=== PATIENT | female | born 1950 | race Caucasian/White ===

== ENCOUNTER 2024-12-18 16:40 | Inpatient (IN) | payer MEDICARE ==
[~2024-12-18 16:40] MED LIST: Iopamidol 370 76% 100 ML VIAL ONE
[2024-12-18 17:48] LABS: ALT (SGPT) 21 U/L (Less than 34); AST (SGOT) 28 U/L (11-34); Albumin 3.6 g/dL (3.1-4.5); Alkaline Phosphatase 122 U/L (40-110); Anion Gap 18 mmol/L (10-20); BUN (Urea Nitrogen) 29 mg/dL (9.8-20.1); Bilirubin, Total 1.2 mg/dL (0.3-1.2); Calc. Creatinine Clearance 0 mL/min (70-130); Calcium 8.9 mg/dL (7.8-10.44); Carbon Dioxide 23 mmol/L (23-31); Chloride 99 mmol/L (98-107); Globulin 3.8 g/dL (2.4-3.5); Glucose 194 mg/dL (83-110); Potassium 4.5 mmol/L (3.5-5.1); Sodium 135 mmol/L (136-145)
[2024-12-18] MEDS ORDERED: cefTRIAXone (ROCEPHIN) 2 GM VIAL ONE (17:53)
[2024-12-18 17:54] LABS: #Basophils Less than 0.03 10x3/uL (0.0-0.2); #Eosinophils 0.03 10x3/uL (0.0-0.5); #Monocytes 0.71 10x3/uL (0.0-1.1); #Neutrophils 10.12 10x3/uL (1.5-8.4); %Basophils 0.2 % (0.0-2.0); %Eosinophils 0.3 % (0.0-6.0); %Lymphocytes 2.8 % (18.0-47.0); %Monocytes 6.3 % (0.0-10.0); %Neutrophils 90.1 % (40.0-75.0); Hematocrit 35.9 % (34.9-44.5); Hemoglobin 11.4 g/dL (12.0-15.5); Mean Corpuscular Hemoglobin 30.3 pg (27.0-33.0); Mean Corpuscular Volume 95.5 fL (81.6-98.3); Platelet Count 167 10x3/uL (150-450); Red Blood Cell (RBC) Count 3.76 10x6/uL (3.90-5.03); Troponin I 0.010 ng/mL (< 0.028); White Blood Cell (WBC) Count 11.22 10x3/uL (3.5-10.5)
[2024-12-18] MEDS ORDERED: Azithromycin 500 MG VIAL ONE (18:13)
[2024-12-18] MEDS ORDERED: Furosemide 40 MG (4 mL) VIAL ONE ×2 (18:43→19:31)
[2024-12-18] MEDS ORDERED: Senokot S 8.6-50 MG TAB PO PRN (19:26)
[2024-12-18] MEDS ORDERED: Calcium Carbonate 500 MG ChewTAB PO PRN (19:26)
[2024-12-18] MEDS ORDERED: Guaifenesin DM 100-10/5 ML UDCUP PO PRN (19:26)
[2024-12-18] MEDS ORDERED: Ondansetron PF 4 MG/2 ML Vial IVP PRN (19:26)
[2024-12-18] MEDS ORDERED: Benzonatate 100 MG CAP PO PRN (19:43)
[2024-12-18 22:05] LABS: Troponin I 0.045 ng/mL (< 0.028)
[2024-12-18] MEDS: Nitroglycerin 2% Ointment 1 INCH/1 GM Packet TOP SCH (22:57)
[2024-12-18] MEDS: Furosemide 40 MG (4 mL) VIAL SLOW IVP SCH (22:57)
[2024-12-18] MEDS: Gabapentin 300 MG CAP PO SCH (22:57)
[2024-12-19] MEDS: Acetaminophen 325 MG TAB PO PRN (01:05)
[2024-12-19 02:00] LABS: Legionella Urinary Ag Negative (Negative); Strep pneumo Urine Ag NEGATIVE (NEGATIVE)
[2024-12-19 02:19] LABS: Influenza A by NAA Not Detected (NotDetected); Influenza B by NAA Not Detected (NotDetected); RSV by NAA Not Detected (NotDetected); SARS-CoV-2 NAA Rapid Test Not Detected (NotDetected)
[2024-12-19 05:36] LABS: Actual Bicarbonate (HCO3a) 23.2 mEq/L (22-28); Analyzer IN Cardio CS ICU; Base Excess (BEa) -0.8 mEq/L (-2.0 to +3.0); CO2 Tension 36.1 mmHg (35.0-45.0); Calcium, Ionized (arterial) 1.14 mmol/L (1.12-1.30); Hematocrit-ABG 33 % (36.0-47.0); Hemoglobin (Hb) 11.1 g/dL (12.0-16.0); O2 Tension (PaO2), arterial 83.0 mmHg (> 70.0); Potassium - ABG Lab 3.66 mmol/L (3.70-5.30); Puncture Site Right Radial artery; pH, Arterial 7.426 (7.35-7.45)
[2024-12-19 05:38] LABS: ALV-art Gradient 228.375 mmHg (0-20)
[2024-12-19 05:47] LABS: Anion Gap 19 mmol/L (10-20); BUN (Urea Nitrogen) 25 mg/dL (9.8-20.1); Calc. Creatinine Clearance 65 mL/min (70-130); Calcium 8.7 mg/dL (7.8-10.44); Carbon Dioxide 24 mmol/L (23-31); Chloride 101 mmol/L (98-107); Glucose 136 mg/dL (83-110); Potassium 3.8 mmol/L (3.5-5.1); Sodium 140 mmol/L (136-145)
[2024-12-19 05:55] LABS: Troponin I 0.088 ng/mL (< 0.028)
[2024-12-19] MEDS: Furosemide 40 MG (4 mL) VIAL SLOW IVP SCH (06:32)
[2024-12-19] MEDS ORDERED: Electrolyte Replacement Protocol 1 EACH FS PRN (08:15)
[2024-12-19] MEDS: Carvedilol 6.25 MG TAB PO SCH (09:00)
[2024-12-19] MEDS: Amoxicillin/Potassium Clav 875 MG TAB PO SCH (09:00)
[2024-12-19] MEDS: Pantoprazole 40 MG DR.TAB PO SCH (09:00)
[2024-12-19] MEDS: Aspirin 81 mg Enteric Coated Tablet PO SCH (09:00)
[2024-12-19] MEDS: Enoxaparin 40 MG (0.4 mL) SYRINGE SC SCH (09:00)
[2024-12-19] MEDS: Losartan 25 MG TAB PO SCH (09:00)
[2024-12-19 09:41] LABS: #Basophils Less than 0.03 10x3/uL (0.0-0.2); #Eosinophils 0.03 10x3/uL (0.0-0.5); #Monocytes 0.93 10x3/uL (0.0-1.1); #Neutrophils 6.92 10x3/uL (1.5-8.4); %Basophils 0.2 % (0.0-2.0); %Eosinophils 0.3 % (0.0-6.0); %Lymphocytes 9.5 % (18.0-47.0); %Monocytes 10.6 % (0.0-10.0); %Neutrophils 79.1 % (40.0-75.0); Hematocrit 32.0 % (34.9-44.5); Hemoglobin 10.5 g/dL (12.0-15.5); Mean Corpuscular Hemoglobin 30.6 pg (27.0-33.0); Mean Corpuscular Volume 93.3 fL (81.6-98.3); Platelet Count 161 10x3/uL (150-450); Red Blood Cell (RBC) Count 3.43 10x6/uL (3.90-5.03); White Blood Cell (WBC) Count 8.76 10x3/uL (3.5-10.5)
[2024-12-19 10:14] LABS: Magnesium 1.5 mg/dL (1.6-2.6)
[2024-12-19] MEDS: HYDROcodone/Acetaminophen 5/325 mg Tablet PO PRN (10:59)
[2024-12-19] MEDS: Magnesium 2 GM/50 ML(in water) 2 GM in Premix 1 BAG IVPB SCH (11:11)
[2024-12-19] MEDS: Furosemide 20 MG (2 mL) VIAL SLOW IVP SCH (14:00)
[2024-12-19] MEDS ORDERED: Azithromycin 500 MG in Sodium Chloride 0.9% 250 ML 250 ML IVPB SCH (18:00)
[2024-12-19] MEDS: Gabapentin 300 MG CAP PO SCH (20:11)
[2024-12-20 05:42] LABS: #Basophils 0.03 10x3/uL (0.0-0.2); #Eosinophils 0.06 10x3/uL (0.0-0.5); #Monocytes 0.92 10x3/uL (0.0-1.1); #Neutrophils 6.21 10x3/uL (1.5-8.4); %Basophils 0.3 % (0.0-2.0); %Eosinophils 0.7 % (0.0-6.0); %Lymphocytes 16.2 % (18.0-47.0); %Monocytes 10.6 % (0.0-10.0); %Neutrophils 71.5 % (40.0-75.0); Hematocrit 31.1 % (34.9-44.5); Hemoglobin 10.0 g/dL (12.0-15.5); Mean Corpuscular Hemoglobin 30.2 pg (27.0-33.0); Mean Corpuscular Volume 94.0 fL (81.6-98.3); Platelet Count 177 10x3/uL (150-450); Red Blood Cell (RBC) Count 3.31 10x6/uL (3.90-5.03); White Blood Cell (WBC) Count 8.69 10x3/uL (3.5-10.5)
[2024-12-20 06:02] LABS: ALT (SGPT) 19 U/L (Less than 34); AST (SGOT) 29 U/L (11-34); Albumin 2.9 g/dL (3.1-4.5); Alkaline Phosphatase 88 U/L (40-110); Anion Gap 12 mmol/L (10-20); BUN (Urea Nitrogen) 25 mg/dL (9.8-20.1); Bilirubin, Total 0.5 mg/dL (0.3-1.2); Calc. Creatinine Clearance 64 mL/min (70-130); Calcium 8.9 mg/dL (7.8-10.44); Carbon Dioxide 31 mmol/L (23-31); Chloride 97 mmol/L (98-107); Globulin 3.4 g/dL (2.4-3.5); Glucose 122 mg/dL (83-110); Magnesium 1.9 mg/dL (1.6-2.6); Potassium 3.3 mmol/L (3.5-5.1); Sodium 137 mmol/L (136-145)
[2024-12-20] MEDS: Magnesium 2 GM/50 ML(in water) 2 GM in Premix 1 BAG IVPB SCH (07:30)
[2024-12-20] MEDS: Oxybutynin 5 MG TAB PO SCH (07:32)
[2024-12-20 14:09] LABS: Potassium 3.8 mmol/L (3.5-5.1)
[2024-12-20] MEDS: Carvedilol 3.125 MG TAB PO SCH (17:27)
[2024-12-21 04:30] LABS: #Basophils 0.04 10x3/uL (0.0-0.2); #Eosinophils 0.13 10x3/uL (0.0-0.5); #Monocytes 0.97 10x3/uL (0.0-1.1); #Neutrophils 5.36 10x3/uL (1.5-8.4); %Basophils 0.5 % (0.0-2.0); %Eosinophils 1.5 % (0.0-6.0); %Lymphocytes 23.0 % (18.0-47.0); %Monocytes 11.4 % (0.0-10.0); %Neutrophils 63.0 % (40.0-75.0); Hematocrit 36.1 % (34.9-44.5); Hemoglobin 11.5 g/dL (12.0-15.5); Mean Corpuscular Hemoglobin 30.1 pg (27.0-33.0); Mean Corpuscular Volume 94.5 fL (81.6-98.3); Platelet Count 205 10x3/uL (150-450); Red Blood Cell (RBC) Count 3.82 10x6/uL (3.90-5.03); White Blood Cell (WBC) Count 8.51 10x3/uL (3.5-10.5)
[2024-12-21 04:52] LABS: Anion Gap 17 mmol/L (10-20); BUN (Urea Nitrogen) 26 mg/dL (9.8-20.1); Calc. Creatinine Clearance 60 mL/min (70-130); Calcium 10.4 mg/dL (7.8-10.44); Carbon Dioxide 30 mmol/L (23-31); Chloride 94 mmol/L (98-107); Glucose 118 mg/dL (83-110); Magnesium 2.0 mg/dL (1.6-2.6); Potassium 3.3 mmol/L (3.5-5.1); Sodium 138 mmol/L (136-145)
[2024-12-21] MEDS: PNEUMOC 20-VAL CONJ-DIP CRM/PF 0.5 ML SYRINGE IM ONE (07:46)
[2024-12-21] MEDS: Magnesium 2 GM/50 ML(in water) 2 GM in Premix 1 BAG IVPB SCH (09:34)
[2024-12-21 10:45] VITALS: BMI 31.7
[2024-12-21] MEDS: Spironolactone 25 MG TAB PO SCH (11:06)
[2024-12-21 13:10] VITALS: BP 148/72; TEMP 98
[2024-12-22] MEDS ORDERED: Spironolactone 25 MG TAB PO SCH (08:00)
== END 2024-12-21 12:55 | disposition home or self-care (01) | DRG 177 ==
LOC: CSHERS 16:40 → CSHERHOLD 18:44 → CSHICU 21:57 → CSHTELE 12-21 03:44
PROVIDERS: ADMIT Student in an Organized Health Care Education/Training Program; ATTEND Internal Medicine
PROC: 3E03329 Introduction of Other Anti-infective into Peripheral Vein, Percutaneous Approach (ICD-10-PCS; principal; 2024-12-18)
PROC: 3E0234Z Introduction of Serum, Toxoid and Vaccine into Muscle, Percutaneous Approach (ICD-10-PCS; 2024-12-18)
PROC: 4A033R1 Measurement of Arterial Saturation, Peripheral, Percutaneous Approach (ICD-10-PCS; 2024-12-19)
DX: J69.0 Pneumonitis due to inhalation of food and vomit (principal); I50.31 Acute diastolic (congestive) heart failure; J96.01 Acute respiratory failure with hypoxia; I11.0 Hypertensive heart disease with heart failure; D64.9 Anemia, unspecified; Z98.890 Other specified postprocedural states; Z82.49 Family history of ischemic heart disease and other diseases of the circulatory system; Z79.899 Other long term (current) drug therapy; E87.6 Hypokalemia; T50.1X5A Adverse effect of loop [high-ceiling] diuretics, initial encounter; G89.29 Other chronic pain; M54.50 Low back pain, unspecified; R32 Unspecified urinary incontinence; Z23 Encounter for immunization
CPT/HCPCS: 36415; 36600; 71045; 71275; 80048; 80053; 82805; 83036; 83605; 83735; 83880; 84100; 84145; 84484; 85025; 86140; 87040; 87449; 87637; 87899; 93005; 93010; 93306; 94760; 94762; 96365; 96366; 96367; 96375; 96376; J0456; J0696; J1650; J1940; J2543; J3475; Q9967